=== PATIENT | male | born 1960 | race Asian ===

== ENCOUNTER → 2023-08-18 06:25 | Outpatient (REF) | payer BC, SELFPAY ==
[2023-08-18 07:28] LABS: ALT (SGPT) 55 U/L (0-50); AST (SGOT) 48 U/L (17-59); Albumin 4.4 g/dl (3.5-5.0); Alkaline Phosphatase 43 U/L (38-126); Blood Urea Nitrogen 22 mg/dl (9-20); Calcium 9.5 mg/dl (8.4-10.2); Carbon Dioxide 26 mmol/L (22-30); Chloride 109 mmol/L (98-107); Glucose 104 mg/dl (70-99); HDL Cholesterol 41 mg/dl; LDL Cholesterol, Calculated 88 mg/dl; Potassium 4.1 mmol/L (3.5-5.1); Sodium 140 mmol/L (135-145); Total Bilirubin 0.6 mg/dl (0.2-1.3); Total Cholesterol 144 mg/dl (50-199); Total Protein 7.1 g/dl (6.3-8.2); Triglyceride 78 mg/dl (10-149); Very Low Density Lipoprotein 15 mg/dl (0-30); eGFR > 60.00
[2023-08-18 07:57] LABS: TSH 9.82 uIU/ml (0.47-4.68)
[2023-08-18 09:22] LABS: Glycohemoglobin (HgbA1c) 6.6 % (4.0-5.6)
== END ==
LOC: REG 06:25
PROVIDERS: ATTENDING PHYSICIAN Internal Medicine Endocrinology, Diabetes & Metabolism
DX: E03.9 Hypothyroidism, unspecified (principal); E78.5 Hyperlipidemia, unspecified
CPT/HCPCS: 36415; 80053; 80061; 83036; 84443

== ENCOUNTER → 2024-02-18 06:42 | Outpatient (REF) | payer BC, SELFPAY ==
[2024-02-18 08:21] LABS: Glycohemoglobin (HgbA1c) 6.2 % (4.0-5.6)
[2024-02-18 08:54] LABS: ALT (SGPT) 46 U/L (0-50); AST (SGOT) 37 U/L (17-59); Albumin 4.8 g/dl (3.5-5.0); Alkaline Phosphatase 47 U/L (38-126); Blood Urea Nitrogen 17 mg/dl (9-20); Calcium 9.8 mg/dl (8.4-10.2); Carbon Dioxide 20 mmol/L (22-30); Chloride 107 mmol/L (98-107); Glucose 111 mg/dl (70-99); HDL Cholesterol 40 mg/dl; LDL Cholesterol, Calculated 85 mg/dl; Potassium 4.6 mmol/L (3.5-5.1); Sodium 142 mmol/L (135-145); Total Bilirubin 0.5 mg/dl (0.2-1.3); Total Cholesterol 148 mg/dl (50-199); Total Protein 7.3 g/dl (6.3-8.2); Triglyceride 115 mg/dl (10-149); Very Low Density Lipoprotein 23 mg/dl (0-30); eGFR > 60.00
[2024-02-18 11:38] LABS: TSH 7.26 uIU/ml (0.47-4.68)
== END ==
LOC: REG 06:42
PROVIDERS: ATTENDING PHYSICIAN Internal Medicine Endocrinology, Diabetes & Metabolism
DX: E11.69 Type 2 diabetes mellitus with other specified complication (principal); E89.0 Postprocedural hypothyroidism
CPT/HCPCS: 36415; 80053; 80061; 83036; 84443

== ENCOUNTER 2024-05-20 19:42 | Emergency (ER) | payer BC, SELFPAY ==
[2024-05-20 19:43] VITALS: BP 115/90
--- NOTE | 2024-05-20 20:25 | ED.GENMED ---
History of Present Illness
General
Chief Complaint: Foreign Body Ingestion
Source: patient
Time Seen by Provider: 05/20/24 20:02
History of Present Illness
History of Present Illness:
63-year-old gentleman presents complaining of having a sensation of a fishbone retained in his right throat. Patient was eating a meal with fish and swallowed what felt like a fishbone that became lodged in the right side of his throat. Symptom
has persisted now for couple hours. No other complaints. Patient is tolerating his secretions. No shortness of breath or difficulty breathing.
Past History
Past History
ED Past Medical History: None
Phy Exam
Physical Exam
Physical Exam:
General: Awake, Alert, Oriented X3. No acute distress.
Vitals: unremarkable
Head: Atraumatic
Eyes: Pupils equal, EOMI
Throat: Airway intact, no exudates, posterior pharynx examined with tongue depressor and with laryngoscope blade. I am unable to visualize a foreign body in the viewable portion of the pharynx.
Neck: Trachea midline
Lungs: Clear and equal b/l
Neuro: Nonfocal
Skin: Warm, dry, no rash
Extremities: pulses equal b/l, no edema
Course
Orders/Labs/Results
Orders:
Orders
05/20/24 20:22
CT Neck W/o Iv Contrast Urgent
Comment:
Reason For Exam: possible fishbone right throat
05/20/24 22:15
Viscous Lidocaine 2% [Xylocaine Viscous Cup] 15 ml PO NOW STA
Vital Signs
Initial and Last Documented VS:
Initial Vital Signs
Temp Pulse Resp BP Pulse Ox
97.7 F 91 18 115/90 99
05/20/24 19:43 05/20/24 19:43 05/20/24 19:43 05/20/24 19:43 05/20/24 19:43
Last Documented Vital Signs
Temp Pulse Resp BP Pulse Ox
97.7 F 91 18 115/90 99
05/20/24 19:43 05/20/24 19:43 05/20/24 19:43 05/20/24 19:43 05/20/24 20:34
MDM/Problems Addressed
Differential Diagnosis Includes:
Retained fishbone in tonsillar region, abrasion
MDM/Problems Addressed:
CT scan does not demonstrate a foreign body. I do not visualize a foreign body on direct visualization as far as I can see. Patient treated with a dose of oral lidocaine. Recommend ENT follow-up
*Radiology
Radiology exam reviewed: other (Vision report reviewed)
*Pulse Oximetry
Patient hypoxic: no
*Critical Care Note
Total Time (30-74mins, 75-104mins- exclusive of procedures): Not Applicable
ED Attending Note
-
Portions of this chart may have been created with voice recognition software.� Occasional wrong word or��sound alike� substitutions may have occurred due to the inherent limitations of voice recognition software.
Discharge Plan
Departure
Patient Disposition: Home (Routine Discharge)
Patient with high blood pressure during this ER visit?: No
Condition: Good
Discharge Problem:
Foreign body, swallowed
Instructions: Foreign Body, Swallowed, Adult
Prescriptions:
No Action
metformin 500 mg Tablet
500 mg PO DAILY
vitamin B complex Capsule
1 cap PO DAILY
cholecalciferol (vitamin D3) [Vitamin D3] 25 mcg (1,000 unit) Capsule
25 mcg PO DAILY
rosuvastatin 20 mg Tablet
20 mg PO DAILY
Referrals:
Bryan Klein MD [Family Provider] -
Dawood Arvizu MD [Active] -
Interventions
Interventions:
*Risk Screen - Suicide Last Done: 05/20/24 19:43
*General Assessment Last Done: 05/20/24 19:43
*Neglect/Abuse Screening Last Done: 05/20/24 19:43
ED- Fall Risk Assessment Last Done: 05/20/24 20:34
*ED COVID-19 Vaccine History Last Done: 05/20/24 19:43
*Nursing Disposition Last Done: 05/20/24 22:19
VI-Ztrwju-Hnlrodppke Assessment Last Done: 05/20/24 20:34
ED-EENT Assessment Last Done: 05/20/24 20:34
ED- Pulmonary Assessment Last Done: 05/20/24 20:34
Discharge Date and Time
Discharge Date/Time: 05/20/24 22:20
Print Language: QATARI
[2024-05-20] MEDS: XYLOCAINE VISCOUS CUP 15 ML PO (22:19)
== END 2024-05-20 22:20 | disposition home or self-care (01) ==
LOC: EMR 19:42
PROVIDERS: EMERGENCY PHYSICIAN Emergency Medicine; FAMILY PHYSICIAN Internal Medicine Endocrinology, Diabetes & Metabolism
DX: T18.9XXA Foreign body of alimentary tract, part unspecified, initial encounter (principal); W44.9XXA Unspecified foreign body entering into or through a natural orifice, initial encounter
CPT/HCPCS: 99284; 70490

== ENCOUNTER → 2024-08-12 06:51 | Outpatient (REF) | payer BC, SELFPAY ==
[2024-08-12 07:48] LABS: ALT (SGPT) 43 U/L (0-50); AST (SGOT) 35 U/L (17-59); Albumin 5.2 g/dl (3.5-5.0); Alkaline Phosphatase 46 U/L (38-126); Blood Urea Nitrogen 16 mg/dl (9-20); Calcium 10.2 mg/dl (8.4-10.2); Carbon Dioxide 24 mmol/L (22-30); Chloride 101 mmol/L (98-107); Glucose 92 mg/dl (70-99); HDL Cholesterol 49 mg/dl; LDL Cholesterol, Calculated 110 mg/dl; Potassium 4.3 mmol/L (3.5-5.1); Sodium 137 mmol/L (135-145); Total Cholesterol 179 mg/dl (50-199); Total Protein 7.7 g/dl (6.3-8.2); Triglyceride 100 mg/dl (10-149); Very Low Density Lipoprotein 20 mg/dl (0-30); eGFR > 60.00
[2024-08-12 08:10] LABS: Prolactin 18.7 ng/ml (3.7-17.9)
[2024-08-13 13:50] LABS: % Free Testosterone 1.6 % (1.6-2.9); Free Testosterone 90 pg/mL (47-244); Sex Hormone Binding Globulin 42 nmol/L (19-76); Testosterone, Bioavailable 267 ng/dL (131-682); Total Testosterone 555 ng/dL (300-720)
== END ==
LOC: REG 06:51
PROVIDERS: ATTENDING PHYSICIAN Internal Medicine Endocrinology, Diabetes & Metabolism
DX: E11.69 Type 2 diabetes mellitus with other specified complication (principal); E89.0 Postprocedural hypothyroidism; N52.9 Male erectile dysfunction, unspecified
CPT/HCPCS: 36415; 80053; 80061; 83036; 84146; 84270; 84402; 84403; 84443

== ENCOUNTER → 2025-02-25 07:02 | Outpatient (REF) | payer BC, SELFPAY ==
[2025-02-25 08:25] LABS: ALT (SGPT) 49 U/L (0-50); AST (SGOT) 37 U/L (17-59); Albumin 4.8 g/dl (3.5-5.0); Alkaline Phosphatase 40 U/L (38-126); Blood Urea Nitrogen 17 mg/dl (9-20); Calcium 9.5 mg/dl (8.4-10.2); Carbon Dioxide 23 mmol/L (22-30); Chloride 109 mmol/L (98-107); Glucose 117 mg/dl (70-99); Potassium 4.5 mmol/L (3.5-5.1); Sodium 140 mmol/L (135-145); Total Protein 7.3 g/dl (6.3-8.2); eGFR > 60.00
== END ==
LOC: REG 07:02
PROVIDERS: ATTENDING PHYSICIAN Internal Medicine Endocrinology, Diabetes & Metabolism
DX: E11.69 Type 2 diabetes mellitus with other specified complication (principal); E89.0 Postprocedural hypothyroidism; N52.9 Male erectile dysfunction, unspecified
CPT/HCPCS: 36415; 80053; 84146; 84270; 84402; 84403

== ENCOUNTER 2025-02-28 06:53 | Day surgery (SDC) | payer BC, SELFPAY ==
[2025-02-24 07:38] LABS: Hematocrit 44.1 % (39.0-52.0); Hemoglobin 14.2 g/dL (13.0-18.0); Mean Corp Hgb Conc. 32.2 g/dL (33.0-37.0); Mean Corpuscular Volume 83.2 fL (80.0-94.0); Nucleated Red Blood Cells % 0 % (-); Platelet Count 213 10^3/uL (130-400); Red Cell Dist. Width 12.9 % (11.5-14.5)
[2025-02-24 07:43] LABS: Blood Urea Nitrogen 17 mg/dl (9-20); Calcium 10.0 mg/dl (8.4-10.2); Carbon Dioxide 25 mmol/L (22-30); Chloride 108 mmol/L (98-107); Glucose 106 mg/dl (70-99); HDL Cholesterol 41 mg/dl; LDL Cholesterol, Calculated 88 mg/dl; Potassium 4.6 mmol/L (3.5-5.1); Sodium 140 mmol/L (135-145); Very Low Density Lipoprotein 21 mg/dl (0-30); eGFR > 60.00
[2025-02-24 07:47] LABS: INR 1.01; PT 13.8 Sec (11.4-14.6)
[2025-02-24 08:12] LABS: TSH 7.33 uIU/ml (0.47-4.68)
[2025-02-24 11:14] LABS: Glycohemoglobin (HgbA1c) 6.2 % (4.0-5.6)
[2025-02-28] VITALS (7 sets, daily range): BP systolic 112–133; BP diastolic 69–90; BMI 29.5
--- NOTE | 2025-02-28 07:49 | HP.FOC2 ---
Focused History & Physical
Chief Complaint
HPI:
Chief Complaint: Umbilical hernia, skin lesion on the back
HPI / Indication for Planned Procedure: Patient is a 64-year-old male recently seen in outpatient surgical evaluation secondary to few year history of visible swelling and protrusion in the umbilical region. Occasional mild ache but no significant
pain. No symptoms suggestive of intermittent incarceration or obstruction. Patient also reported an enlarging skin tag/lesion along the left back region. Physical examination confirmed the presence of a reducible umbilical hernia, 2.5 cm fascial
defect and left lateral back skin tag about 1.5 cm. He presents today for scheduled operative intervention.
Relevant Past Medical History: Other (Hyperlipidemia, type 2 diabetes, history of benign thyroid nodule)
Relevant Social History: Negative
Relevant Family History: Negative
Relevant Past Surgical History: Positive for (Total thyroidectomy, laminectomy, right eye cataract)
Review of Systems
Review of Pertinent Systems: All Systems Negative
Medication
See Medication form for detailed medications: Yes
Medication List (including Herbals & OTC):
metformin 500 mg tablet 500 mg PO DAILY 01/16/22
vitamin B complex 1 cap PO DAILY 01/16/22
cholecalciferol (vitamin D3) 125 mcg (5,000 unit) tablet (Vitamin D3) 125 mcg PO Q48H 02/17/25
levothyroxine 125 mcg tablet 125 mcg PO MOTUWETHFRSA 02/17/25
pitavastatin calcium 4 mg tablet 4 mg PO DAILY 02/17/25
Medications Reviewed: Yes
Allergies and Reactions
Patient has Allergies: Yes
Noted Allergies and Reactions:
Allergy/AdvReac Type Severity Reaction Status Date / Time
pollen extracts Allergy SEASONAL-watery Verified 02/17/25 09:56
eyes,
nasal
congestion
Pertinent Physical Exam
All Other Systems: Negative
Head/Neck: Normal
Lungs: Normal
Heart: Normal
Abdomen: Normal (Reducible umbilical hernia, 2.5 cm fascial defect)
Extremities: Normal
Neurological: Normal
Other: Left lateral back 1.5 cm skin tag/lesion
Diagnosis / Assessment
64-year-old male presenting for scheduled umbilical hernia repair and removal of skin lesion
Plan / Procedure
Robotic assisted laparoscopic repair umbilical hernia with mesh; excision left lateral back skin lesion
Anesthesia/Sedation to be done by Anesthesia Provider: Yes
--- NOTE | 2025-02-28 07:51 | W.SUR.PREOP ---
Pre-Operative Surgical Note
-
I have examined this patient prior to the performance of the scheduled procedure.
The patient's condition is unchanged from the time of the current History and
Physical and the patient is able to undergo the scheduled procedure.
[2025-02-28] MEDS: TYLENOL 1000 MG PO (08:28)
[2025-02-28 08:47] LABS: Glucose - Point of Care 113 mg/dl (70-99)
[2025-02-28] MEDS: NORMOSOL-R/PLASMALYTE-A 1000 IV (08:49)
--- NOTE | 2025-02-28 11:12 | W.IMMPOSTOP ---
Addendum entered and electronically signed by Agustin Zurita MD 02/28/25 11:28:
#[id number]
Original Note:
Surgical Immed Post Op Note
-
Primary Surgeon: Agustin Zurita MD
Assisting Surgeon: Iwona Neff PA-c
Pre-op Diagnosis: Umbilical hernia
Benign skin lesion, back
Post-op Diagnosis: Umbilical hernia, 2.5 cm
Benign skin lesion, back; excised diameter plus margin 1.8 cm
Procedure Performed: Robotic assisted laparoscopic T EMRE repair umbilical hernia with mesh; Bard soft 12 cm x 12 cm
Excision left back benign skin lesion; 1.8 cm
Anesthesia Type: GETA +0.25% Marcaine with epinephrine
Specimen / Cultures: Skin lesion
Estimated Blood Loss: 10 mL
Complications: None immediate
Operative Findings: Left back skin lesion excised; excision diameter including margin 1.8 cm. Skin closed with 4-0 Monocryl and Steri-Strips applied
Umbilical hernia with omental adhesions which were released. Transabdominal preperitoneal repair. Closure of fascial defect with 0 PDS STRATAFIX symmetric suture. 12 x 12 cm Bard soft mesh underlay secured with interrupted 2-0 Vicryl stitches.
Peritoneal flap closed with 2-0 Monocryl STRATAFIX spiral stitch.
The assistance of Iwona Neff PA-C was required due to the complexity of the procedure. During the procedure Iwona Neff PA-C assisted with port placement, robotic instrumentation and suture material exchanges, and closure of the surgical incision
sites. I was present for the entirety of the operative procedure.
[2025-02-28 11:37] LABS: Glucose - Point of Care 137 mg/dl (70-99)
== END 2025-02-28 13:19 | disposition home or self-care (01) ==
LOC: SDS 06:53
PROVIDERS: ATTENDING PHYSICIAN Surgery; FAMILY PHYSICIAN Internal Medicine Endocrinology, Diabetes & Metabolism
DX: K42.9 Umbilical hernia without obstruction or gangrene (principal); D36.10 Benign neoplasm of peripheral nerves and autonomic nervous system, unspecified; L98.9 Disorder of the skin and subcutaneous tissue, unspecified
CPT/HCPCS: 49591; 36415; 80048; 80061; 82962; 83036; 84443; 85025; 85610; 88304; 88341; 88342; 93005; C1781